=== PATIENT | male | born 1970 | race Caucasian/White ===

== ENCOUNTER 2016-11-09 18:29 | Emergency (ER) | payer BC ==
[2016-11-09 19:31] VITALS: TEMP 98
[2016-11-09 19:56] LABS: % IMMATURE GRANULYOCYTES 0.4 % (0.0-1.1); ABSOLUTE IMMATURE GRANULOCYTES 0.04 10^3/uL (0.00-0.10); ADD DIFF? NO; ADD MORPH? NO; ADD SCAN? NO; ATYPICAL LYMPHOCYTE FLAG 10 (0-99); FRAGMENT RBC FLAG 0 (0-99); HEMATOCRIT 42.2 % (40.0-51.0); HEMOGLOBIN 15.1 g/dL (13.7-17.5); LEFT SHIFT FLG 0 (0-99); LIPEMIA HEMOLYSIS FLAG 90 (0-99); MEAN CELL HEMOGLOBIN 32.3 pg (27.9-34.1); MEAN CELL HEMOGLOBIN CONCENTR. 35.8 g/dL (32.4-36.7); MEAN CELL VOLUME 90.2 fL (81.5-99.8); MEAN PLATELET VOLUME 8.9 fL (8.7-11.7); PLATELET CLUMPS FLAG 10 (0-99); PLATELET COUNT 301 10^3/uL (150-400); RED BLOOD CELL COUNT 4.68 10^6/uL (4.40-6.38); RED CELL DISTRIBUTION WIDTH 11.6 % (11.5-15.2)
--- NOTE | 2016-11-09 20:04 | UCPHY ---
H & P Time Seen by Provider: 11/09/16 19:19 Patient Type: New HPI/ROS: HPI Hot flashes. 45-year-old male by private vehicle. He is visiting [place] for 2 months. He is from [place]. He has a history of a traumatic brain injury 6 years ago. He reports that since this injury going back at least 5 years he has had intermittent episodes of anxiety, hot flashes and getting very flushed and red in the face and the extremities. He also reports he has had weight gain over this time as well. He reports that the symptoms have been present since he has been in [place]. He does have a primary care physician back in [place] but wanted to come to Urgent Care to have them evaluated. He states that when he starts thinking about his symptoms he feels like he needs answers immediately. He is asking for blood work to check his thyroid function. He denies any change in the symptoms in characteristic over the last 5 years but thinks that they have gotten more intense and frequent over the last several months. He reports also that when he drinks a small amount of alcohol he will get very flushed. ROS: Constitutional: No fever, no chills. As above. Eyes: No discharge. No changes in vision. ENT: No sore throat. No nasal congestion or rhinorrhea. Respiratory: No cough. No shortness of breath. Cardiac: No chest pain, no palpitations. Gastrointestinal: No abdominal pain, no vomiting, no diarrhea. Genitourinary: No hematuria. No dysuria or increased frequency with urination. Musculoskeletal: No back pain. No neck pain. No myalgias or arthralgias. Skin: As above. Neurological: No headache. No focal weakness or altered sensation. Past medical history: As above. Orthopedic injuries Social history: Visiting [place] as above. From [place]. Nonsmoker. Drinks alcohol socially. Physical Exam: General Appearance: Alert, no distress. Large man. Anxious. This patient is responding to questions appropriately and in full sentences. This patient appears well-hydrated and well-nourished. Eyes: Pupils equal and round no pallor or injection. No lid edema, erythema or injection. ENT, Mouth: Mucous membranes are moist. The pharyngeal tissues are unremarkable. No edema or swelling. No asymmetry suggestive of abscess. No erythema or exudates. Respiratory: There are no retractions, lungs are clear to auscultation with good air movement bilaterally. Cardiovascular: Regular rate and rhythm. No murmur. Gastrointestinal: Abdomen is soft and nontender, no masses, bowel sounds normal. No focal tenderness at McBurney's point. No Constantino sign. Neurological: Motor sensory function is grossly intact. Cranial nerves are normal. Gait is normal. Skin: Warm and dry, no rashes. Musculoskeletal: Neck is supple and nontender. Extremities are symmetrical. All joints range without pain or impingement. Psychiatric: No agitation. No depression. Database: EKG: Imaging: Procedures: Emergency department course: After my evaluation, I agreed to do basic blood work on him and check a TSH. I reviewed the possible differential diagnosis and explained to him that when he return to [place] he need to be evaluated for Pati's disease/syndrome and possible pheochromocytoma. He was in agreement to do this. He is moderately hypertensive. Otherwise his vital signs are normal. 8:20 p.m., patient re-evaluated. Resting comfortably at this time. Results of blood work discussed with him. He feels comfortable going home and I feel he is safe for discharge. I will give him a take-home pack of Ativan to help him sleep at night. I discussed what he needed to have evaluated when he returns home to [place] through his primary care physician. Follow-up and return to emergency department precautions were thoroughly reviewed. All of his questions were answered. He was discharged in good condition. Differential Diagnosis: The differential diagnosis on this patient includes but is not limited to anxiety, hyperthyroid, Slemp syndrome, pheochromocytoma, other elevated catecholamine state. This represents a partial list of diagnoses considered. These considerations are based on history, physical exam, past history, reassessment and diagnostic testing. Smoking Status: Never smoked Constitutional: Initial Vital Signs Temperature (C) 36.6 C 11/09/16 19:28 Heart Rate 90 11/09/16 19:28 Respiratory Rate 18 11/09/16 19:28 Blood Pressure 149/96 H 11/09/16 19:28 O2 Sat (%) 90 L 11/09/16 19:28 Allergies/Adverse Reactions: No Known Allergies Allergy (Unverified 11/09/16 19:24) Home Medications: Medication Instructions Recorded Adderall 10 MG (*) 11/09/16 Lipitor 11/09/16 Lortab 5-325 mg Tablet 11/09/16 Methazolamide 11/09/16 Prozac 10 MG (*) 11/09/16 traZODone 11/09/16 Medical Decision Making - Data Points Laboratory Results: Laboratory Results 11/09/16 19:37 11/09/16 11/09/16 19:37 19:37 WBC 10.30 10^3/uL H 10^3/uL (3.80-9.50) RBC 4.68 10^6/uL 10^6/uL (4.40-6.38) Hgb 15.1 g/dL g/dL (13.7-17.5) Hct 42.2 % % (40.0-51.0) MCV 90.2 fL fL (81.5-99.8) MCH 32.3 pg pg (27.9-34.1) MCHC 35.8 g/dL g/dL (32.4-36.7) RDW 11.6 % % (11.5-15.2) Plt Count 301 10^3/uL 10^3/uL (150-400) MPV 8.9 fL fL (8.7-11.7) Neut % (Auto) 66.7 % % (39.3-74.2) Lymph % (Auto) 23.3 % % (15.0-45.0) [place] % (Auto) 7.8 % % (4.5-13.0) Eos % (Auto) 1.6 % % (0.6-7.6) Baso % (Auto) 0.2 % L % (0.3-1.7) Nucleat RBC Rel Count 0.0 % % (0.0-0.2) Absolute Neuts (auto) 6.88 10^3/uL H 10^3/uL (1.70-6.50) Absolute Lymphs (auto) 2.40 10^3/uL 10^3/uL (1.00-3.00) Absolute Monos (auto) 0.80 10^3/uL 10^3/uL (0.30-0.80) Absolute Eos (auto) 0.16 10^3/uL 10^3/uL (0.03-0.40) Absolute Basos (auto) 0.02 10^3/uL 10^3/uL (0.02-0.10) Absolute Nucleated RBC 0.00 10^3/uL 10^3/uL (0-0.01) Immature Gran % 0.4 % % (0.0-1.1) Immature Gran # 0.04 10^3/uL 10^3/uL (0.00-0.10) Sodium Pending Potassium Pending Chloride Pending Carbon Dioxide Pending Anion Gap Pending BUN Pending Creatinine Pending Estimated GFR Pending Glucose Pending Calcium Pending TSH Pending Departure - Departure Disposition: Home, Routine, Self-Care Clinical Impression: Anxiety reaction Condition: Good Instructions: Anxiety (ED) Additional Instructions: Read and follow provided instructions. Follow-up with your primary care physician when he returns home from [place]. You should have your urine catecholamines checked to evaluate for a possible pheochromocytoma. You should also be evaluated for Slemp syndrome. Your primary care physician will be able to do this. Continue your medications as prescribed. Ativan 1 mg tablets; take 1 tablet as needed at night to help you sleep. Return to the emergency department for worsening symptoms or other serious concerns. Referrals: LACHO OWEN MD [Other] - As per Instructions - PQRS PQRS Measurement: Not applicable.
[2016-11-09] MEDS ORDERED: LORAZEPAM 1 MG PREPACK#4 BTL TAKEHOME ONE (20:06)
[2016-11-09 20:10] LABS: ANION GAP 12 mEq/L (8-16); CALCIUM 9.7 mg/dL (8.5-10.4); CARBON DIOXIDE 26 mEq/l (22-31); CHLORIDE 97 mEq/L (97-110); GLOMERULAR FILTRATION RATE > 60; GLUCOSE 116 mg/dL (70-100); POTASSIUM 3.8 mEq/L (3.5-5.2); SODIUM 135 mEq/L (134-144)
[2016-11-09 21:09] VITALS: BP 134/88; PULSE 86; RESP 16; O2SAT 95
== END 2016-11-09 20:45 | disposition home or self-care (01) ==
LOC: CED 18:29
DX: F41.1 Generalized anxiety disorder (principal); Z87.820 Personal history of traumatic brain injury
CPT/HCPCS: 80048-PO; 84443-PO; 85025-PO; G0463-PO